=== PATIENT | male | born 1980 | race Caucasian/White ===

== ENCOUNTER 2021-04-20 19:43 | Emergency (ER) | payer OTHER ==
[2021-04-20 20:03] VITALS: TEMP 97; BMI 32.8
[2021-04-20] MEDS ORDERED: ACETAMINOPHEN 500 MG TABLET (FP) PO ONE (20:19)
[2021-04-20] MEDS ORDERED: ACETAMINOPHEN 500 MG TABLET (FP) ONE (20:23)
[2021-04-20 21:03] VITALS: BP 136/89; PULSE 81
== END 2021-04-20 21:03 | disposition home or self-care (01) ==
LOC: JER 19:43
DX: S33.5XXA Sprain of ligaments of lumbar spine, initial encounter (principal); S60.221A Contusion of right hand, initial encounter; S80.02XA Contusion of left knee, initial encounter
CPT/HCPCS: 72100-TC-FY; 73130-TC-RT-FY; 99284-25

== ENCOUNTER 2021-08-05 15:59 | Emergency (ER) | payer OTHER ==
[2021-08-05 16:05] VITALS: BP 118/74; PULSE 71; TEMP 98; BMI 32.8
[2021-08-05] MEDS ORDERED: NAPROXEN 500 MG TABLET ONE (16:27)
[2021-08-05] MEDS ORDERED: NAPROXEN 500 MG TABLET PO ONE (16:29)
== END 2021-08-05 16:46 | disposition home or self-care (01) ==
LOC: JERFT 15:59
DX: S83.91XA Sprain of unspecified site of right knee, initial encounter (principal); W10.8XXA Fall (on) (from) other stairs and steps, initial encounter; Y93.01 Activity, walking, marching and hiking
CPT/HCPCS: 73562-TC-RT-FY; 99283-25

== ENCOUNTER 2023-02-05 05:23 | Day surgery (SDC) | payer OTHER ==
[2023-02-03 11:45] VITALS: BMI 68.3
[2023-02-05] MEDS ORDERED: BUPIVACAINE LIPOSOME/PF (EXPAREL) 266 MG/20 ML VIAL ONE (09:23)
[2023-02-05] MEDS ORDERED: BUPIVACAINE HCL/PF 0.5% (5MG/ML) 10 ML VIAL ONE (09:23)
[2023-02-05] MEDS ORDERED: MIDAZOLAM HCL 2 MG/2 ML SINGLE DOSE VIAL ONE ×2 (09:24→09:46)
[2023-02-05] MEDS ORDERED: SODIUM CHLORIDE 0.9% P/F 10 ML VIAL IJ ONE (09:24)
[2023-02-05] MEDS ORDERED: PROPOFOL 40 ML ONE (09:46)
[2023-02-05] MEDS ORDERED: ceFAZolin SODIUM 1 GM VIAL ONE (09:49)
[2023-02-05] MEDS ORDERED: ONDANSETRON 4 MG/2 ML VIAL ONE (10:42)
[2023-02-05] MEDS ORDERED: PROPOFOL 20 ML ONE (10:42)
[2023-02-05] MEDS ORDERED: KETOROLAC TROMETHAMINE 30 MG/1 ML VIAL ONE (10:44)
[2023-02-05] MEDS ORDERED: oxyCODONE HCL 5 MG TABLET PO PRN (11:57)
[2023-02-05] MEDS ORDERED: ONDANSETRON 4 MG/2 ML VIAL IVPUSH PRN (11:57)
[2023-02-05] MEDS ORDERED: LACTATED RINGERS SOLUTION 1,000 ML IV SCH (12:00)
[2023-02-05] MEDS ORDERED: oxyCODONE HCL 5 MG TABLET ONE (13:36)
[2023-02-05 13:43] VITALS: BP 109/70; PULSE 61; RESP 20; TEMP 98.2
== END 2023-02-05 14:30 | disposition home or self-care (01) ==
LOC: JASU-SURG 05:23
PROVIDERS: ATTEND Orthopaedic Surgery
PROC: 0YU Anatomical Regions, Lower Extremities, Supplement (ICD-10-PCS; 2023-02-05)
PROC: 0SBC4ZZ Excision of Right Knee Joint, Percutaneous Endoscopic Approach (ICD-10-PCS; principal; 2023-02-05 09:30)
DX: S83.511A Sprain of anterior cruciate ligament of right knee, initial encounter (principal); S83.241A Other tear of medial meniscus, current injury, right knee, initial encounter; X58.XXXA Exposure to other specified factors, initial encounter; Y93.9 Activity, unspecified; Y92.9 Unspecified place or not applicable; Y99.9 Unspecified external cause status
CPT/HCPCS: 29881; 29888; C1713; 94760